=== PATIENT | female | born 2000 | race Caucasian/White ===

== ENCOUNTER 2020-05-08 12:57 | Outpatient (CLI) | payer BC ==
--- NOTE | 2020-05-09 03:43 | EEG ---
DATE OF SERVICE: DESCRIPTION THE RECORD: The waking background is a medium amplitude, 9 hertz alpha frequency. Hyperventilation and photic stimulation were unremarkable. No epileptiform features were seen. The patient became drowsy during the study. IMPRESSION: This is a normal awake and drowsy EEG. Job ID: [id number]
== END 2020-05-08 12:58 | disposition home or self-care (01) ==
LOC: EEG 12:57
PROVIDERS: ATTEND Psychiatry & Neurology Neurology
DX: G40.209 Localization-related (focal) (partial) symptomatic epilepsy and epileptic syndromes with complex partial seizures, not intractable, without status epilepticus (principal)
CPT/HCPCS: 95816

== ENCOUNTER 2021-06-08 18:00 | Outpatient (CLI) | payer BC | END 2021-06-08 18:01 | disposition home or self-care (01) | LOC: SLEEPLAB 18:00 | PROVIDERS: ATTEND Student in an Organized Health Care Education/Training Program | DX: G47.9 Sleep disorder, unspecified (principal); R06.83 Snoring; F41.9 Anxiety disorder, unspecified; G47.00 Insomnia, unspecified; F90.9 Attention-deficit hyperactivity disorder, unspecified type | CPT/HCPCS: 95806 ==

== ENCOUNTER 2022-01-25 10:50 | Outpatient (CLI) | payer OTHER | END 2022-01-25 10:51 | disposition home or self-care (01) | LOC: BICULT 10:50 | PROVIDERS: ATTEND Student in an Organized Health Care Education/Training Program | DX: N93.9 Abnormal uterine and vaginal bleeding, unspecified (principal); N83.201 Unspecified ovarian cyst, right side | CPT/HCPCS: 76856 ==